=== PATIENT | female | born 1995 | race Caucasian/White ===

== ENCOUNTER 2021-03-15 18:28 | Emergency (ER) | payer BC ==
[~2021-03-15] VITALS: Ht 157.5 cm; Wt 90.9 kg
[2021-03-15] MEDS ORDERED: normal saline 1000ML IV soln IVB ONE (20:25)
[2021-03-15] MEDS ORDERED: ondansetron/PF 4mg/2ml inj IV ONE (20:25)
[2021-03-15] MEDS ORDERED: ketorolac trometh. 30mg/ml inj. IV ONE (20:25)
[2021-03-15] MEDS ORDERED: CefTRIAXone/D5W-Rocephin 1gm 50 ML IV STA (20:48)
[2021-03-15 20:51] LABS: BASOPHILS % (AUTO) 0.2 % (0-1); EOSINOPHILS % (AUTO) 0.1 % (0-6); HEMATOCRIT 41.3 % (35.0-45.0); HEMOGLOBIN 13.6 g/dl (12.0-16.0); LYMPHOCYTES # (AUTO) 1.4 X10'3 (1.1-4.8); LYMPHOCYTES % (AUTO) 11.4 % (21-51); MEAN CORPUSCULAR HEMOGLOBIN 28.4 PG (27.0-31.0); MONOCYTES # (AUTO) 0.8 X10'3 (0-0.9); MONOCYTES % (AUTO) 6.3 % (2-12); NEUTROPHILS # (AUTO) 10.5 X10'3 (1.8-7.7); PLATELET COUNT 355 X10'3 (140-440); RED CELL DISTRIBUTION WIDTH 13.4 % (11.5-14.5); WHITE BLOOD COUNT 12.8 X10'3 (4.5-11.0)
[2021-03-15 20:58] LABS: ALANINE AMINOTRANSFERASE 15 U/L (12-78); ALBUMIN 4.1 G/DL (3.4-5.0); ALBUMIN/GLOBULIN RATIO 1.2 (1.1-1.5); ALKALINE PHOSPHATASE 65 IU/L (46-116); ANION GAP 15 (8-16); ASPARTATE AMINO TRANSFERASE 9 U/L (10-37); BILIRUBIN,TOTAL 0.4 MG/DL (0.1-1.0); BLOOD UREA NITROGEN 14 MG/DL (7-18); CALCIUM 8.6 MG/DL (8.5-10.1); CHLORIDE 103 MMOL/L (99-107); GLUCOSE 96 MG/DL (70-104); LIPASE 87 U/L (73-393); POTASSIUM 3.9 MMOL/L (3.5-5.1); SODIUM 138 MMOL/L (135-145); TOTAL CARBON DIOXIDE 20.5 MMOL/L (24-32); TOTAL PROTEIN 7.5 G/DL (6.4-8.2); eGFR 45 ML/MIN
[2021-03-15 21:30] LABS: URINE HCG NEGATIVE (NEG)
[2021-03-15 21:31] LABS: CLARITY,URINE SLIGHTLY CLOUDY (Clear); COLOR,URINE YELLOW (Yellow); GLUCOSE, URINE NEGATIVE (Neg); KETONES,URINE >=80 mg/dl (Neg); LEUKOCYTE ESTERASE ,URINE TRACE (Neg); NITRITES, URINE NEGATIVE (Neg); OCCULT BLOOD,URINE TRACE-INTACT (Neg); PH,URINE 5.5 (4.8-8.0); PROTEIN,URINE NEGATIVE (Neg); UROBILINOGEN,URINE 0.2 E.U/dL (0.2-1.0)
[2021-03-15 21:35] LABS: UA COLLECTION TYPE NON-SPECIFIED
[2021-03-15 21:38] LABS: BACTERIA,URINE 2+ /HPF (Neg); SQUAMOUS EPITHELIAL CELL,UR MANY /LPF (FEW)
[2021-03-15] MEDS ORDERED: HYDR-3965 PO (22:01)
[2021-03-15] MEDS ORDERED: HYDROcodone/acetaminophen 5mg/325mg tablet PO ONE (22:25)
[2021-03-15 22:36] VITALS: BP 112/75
== END 2021-03-15 22:34 | disposition home or self-care (01) ==
LOC: ER 18:29
DX: N20.0 Calculus of kidney (principal); R11.10 Vomiting, unspecified; R30.9 Painful micturition, unspecified; R10.84 Generalized abdominal pain; Z79.899 Other long term (current) drug therapy
CPT/HCPCS: 36415; 74176; 80053; 81001; 81025; 83690; 85025; 96365; 96375; 99284; J0696; J1885; J2405; J7030